=== PATIENT | female | born 1980 | race Caucasian/White ===

== ENCOUNTER 2021-06-06 11:09 | Emergency (ER) | payer BC, SELFPAY ==
[~2021-06-06] VITALS: Ht 165.1 cm; Wt 118.2 kg
[2021-06-06 14:54] VITALS: BP 101/70
== END 2021-06-06 14:50 | disposition home or self-care (01) ==
LOC: M ED 11:09
DX: M25.461 Effusion, right knee (principal); D16.20 Benign neoplasm of long bones of unspecified lower limb; Y93.01 Activity, walking, marching and hiking; F17.200 Nicotine dependence, unspecified, uncomplicated